=== PATIENT | female | born 2000 | race Caucasian/White ===

== ENCOUNTER 2019-08-26 10:40 | Emergency (ER) | payer OTHER ==
[~2019-08-26] VITALS: Ht 162.6 cm; Wt 68.0 kg
[2019-08-26] MEDS ORDERED: methylPREDNISolone SOD SUCC PF 125 MG/2 ML VIAL. IM ONE (11:30)
[2019-08-26] MEDS ORDERED: ASPIRIN 325 MG TABLET PO ONE (11:30)
[2019-08-26] MEDS ORDERED: hydrOXYzine IM 50 MG/ML VIAL IM ONE (11:30)
--- NOTE | 2019-08-26 11:39 | RAD ---
AP and Lateral Views of the Chest 08/26/2019 11:19 AM Indication: chest pain Comparison: None Findings: There is no focal consolidation or infiltrate identified. The cardiomediastinal silhouette is within normal limits. There is no evidence of pneumothorax or pleural effusion. No acute osseous abnormalities are identified. Impression: No evidence of acute cardiopulmonary process. Electronically signed by: Anthony Mckeon MD (08/26/2019 11:36 AM) [facility]
[2019-08-26] MEDS ORDERED: IV NORMAL SALINE 1000ML BAG 1,000 ML IV ONE (12:00)
[2019-08-26 13:06] LABS: BASO % 0 % (0-3); EOS # 0.1 x10^3/uL (0.0-0.7); EOS % 1 % (0-3); HEMATOCRIT 40.2 % (36.0-47.0); HEMOGLOBIN 13.6 g/dL (12.0-15.5); LYMPH # 1.8 x10^3/uL (1.0-4.8); LYMPH % 11 % (24-48); MEAN CORPUSCULAR HEMOGLOBIN 31 pg (25-35); MEAN CORPUSCULAR HGB CONC 34 g/dL (31-37); MEAN CORPUSCULAR VOLUME 91 fL (79-100); MONO # 0.6 x10^3/uL (0.0-1.1); MONO % 3 % (0-9); NEUT # 13.8 x10^3/uL (1.8-7.7); NEUT % 85 % (31-73); PLATELET COUNT 201 x10^3/uL (140-400); RED BLOOD COUNT 4.42 x10^6/uL (3.50-5.40); RED CELL DISTRIBUTION WIDTH 13.5 % (11.5-14.5); WHITE BLOOD COUNT 16.2 x10^3/uL (4.0-11.0)
--- NOTE | 2019-08-26 13:08 | EKG ---
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
[2019-08-26 13:15] LABS: CALCIUM 8.8 mg/dL (8.5-10.1); CREATININE 0.7 mg/dL (0.6-1.0); GFR 105.6; POTASSIUM 3.4 mmol/L (3.5-5.1)
[2019-08-26 13:21] LABS: ALBUMIN 3.4 g/dL (3.4-5.0); TOTAL BILIRUBIN 0.3 mg/dL (0.2-1.0); TOTAL PROTEIN 6.9 g/dL (6.4-8.2)
[2019-08-26] MEDS ORDERED: IOHEXOL 350 MG/ML 100 ML VIAL. IV ONE (13:45)
[2019-08-26 13:58] LABS: BILIRUBIN,URINE SMALL (NEG); CLARITY,URINE CLEAR; COLOR,URINE AMBER; NITRITE,URINE NEGATIVE (NEG); PH,URINE 5.5; PROTEIN,URINE NEGATIVE (NEG-TRACE)
[2019-08-26 14:00] LABS: BARBITURATES NEG (NEG); BENZODIAZEPINES NEG (NEG); CANNABINOIDS NEG (NEG); COCAINE NEG (NEG); METHADONE NEG (NEG); OPIATES NEG (NEG); PHENCYCLIDINE NEG (NEG)
[2019-08-26] MEDS ORDERED: CONTRAST GIVEN. MC PRN (14:00)
[2019-08-26 14:05] LABS: AMPHETAMINE/METHAMPHETAMINE NEG (NEG)
[2019-08-26 14:07] LABS: BACTERIA,URINE FEW /HPF (0-FEW); RBC,URINE 0 /HPF (0-2); SQUAMOUS EPITHELIAL CELL,UR MANY /LPF; WBC,URINE RARE /HPF (0-4)
--- NOTE | 2019-08-26 14:14 | RAD ---
Examination: CT ANGIOGRAPHY CHEST History: Chest pain Comparison/Correlation: None Findings: Axial images of the chest were obtained following IV contrast according to pulmonary arteriography protocol. Sagittal and coronal reformatted images were provided. Maximum intensity projection images were provided. The pulmonary arterial vasculature is normal. No enlarged thoracic lymph nodes. Aorta is unremarkable. No infiltrate or pleural effusion. No pneumothorax. Bony structures are unremarkable. Partially visualized abdomen is unremarkable although motion limits evaluation. Impression: Normal pulmonary arterial vasculature. No infiltrate. PQRS Compliance Statement: One or more of the following individualized dose reduction techniques were utilized for this examination: 1. Automated exposure control 2. Adjustment of the mA and/or kV according to patient size 3. Use of iterative reconstruction technique Electronically signed by: Med Harmon MD (08/26/2019 2:12 PM) [facility]
[2019-08-26 14:38] LABS: % ATYL 1 % (0-0); % BANDS 25 % (0-9); % LYMPHS 15 % (24-48); % MONOS 2 % (0-10); % SEGS 57 % (35-66); PLT ESTIMATE ADEQUATE (ADEQUATE)
[2019-08-26 15:03] VITALS: BP 109/65
--- NOTE | 2019-08-26 15:37 | PHYS DOC ---
Past Medical History Past Medical History: No Pertinent History (LORENZO TREVIÑO APRN) Past Surgical History: No Surgical History (LORENZO TREVIÑO APRN) Additional Information: vaping Alcohol Use: None (LORENZO TREVIÑO APRN) Adult General Chief Complaint Chief Complaint: CHEST PAIN HPI HPI Patient is a 19 year old female who presents with hives that began on Saturday after spending the night at a friend's house. Patient reports the friend uses tide laundry detergent which she has never used. Mother reports patient's sister has allergic reaction to tide. Patient reports she was seen by the PCP on Saturday, was started on Benadryl, Claritin, tapered dose of prednisone and Pepcid which she still taking. While talking with patient she also started complaining of substernal chest pain radiating to her back began in the ED with no exacerbating or relieving factors. Patient appears anxious, unable to rate the pain. Patient denies any chance she is . She reports she has an Implanon (LORENZO TREVIÑO APRN) Review of Systems Review of Systems Constitutional: Denies fever or chills [] Eyes: Denies change in visual acuity, redness, or eye pain [] HENT: Denies nasal congestion or sore throat [] Respiratory: Denies cough or shortness of breath [] Cardiovascular: Reports chest pain GI: Denies abdominal pain, nausea, vomiting, bloody stools or diarrhea [] : Denies dysuria or hematuria [] Musculoskeletal: Denies back pain or joint pain [] Integument: Reports rash Neurologic: Denies headache, focal weakness or sensory changes [] All other systems were reviewed and found to be within normal limits, except as documented in this note. (LORENZO TREVIÑO APRN) Current Medications Current Medications Current Medications Medications (Trade) Dose Ordered Sig/Dalton Start Time Stop Time Status Last Admin Dose Admin Aspirin (Miley Aspirin) 325 mg 1X ONCE 08/26/19 11:30 08/26/19 11:31 DC 08/26/19 11:43 325 MG Hydroxyzine HCl (Vistaril Im) 25 mg 1X ONCE 08/26/19 11:30 08/26/19 11:31 DC 08/26/19 11:40 25 MG Info (CONTRAST GIVEN -- Rx MONITORING) 1 each PRN DAILY PRN 08/26/19 14:00 08/26/19 15:50 DC Iohexol (Omnipaque 350 Mg/ml) 90 ml 1X ONCE 08/26/19 13:45 08/26/19 13:47 DC 08/26/19 14:01 90 ML Methylprednisolone Sodium Succinate (SOLU-Medrol 125MG VIAL) 125 mg 1X ONCE 08/26/19 11:30 08/26/19 11:31 DC 08/26/19 11:42 125 MG Sodium Chloride 1,000 ml @ 1,000 mls/hr 1X ONCE 08/26/19 12:00 08/26/19 12:59 DC 08/26/19 13:42 1,000 MLS/HR (LOU ROSENBERG DO) Allergies Allergies Allergies Coded Allergies Type Severity Reaction Last Updated Verified No Known Drug Allergies 08/26/19 No (LOU ROSENBERG DO) Physical Exam Physical Exam Constitutional: Well developed, well nourished, no acute distress, non-toxic appearance. [] HENT: Normocephalic, atraumatic, bilateral external ears normal, oropharynx moist, no oral exudates, nose normal. [] Eyes: PERRLA, EOMI, conjunctiva normal, no discharge. [] Neck: Normal range of motion, no tenderness, supple, no stridor. [] Cardiovascular:Heart rate regular rhythm, no murmur [] Lungs & Thorax: Bilateral breath sounds clear to auscultation [] Abdomen: Bowel sounds normal, soft, no tenderness, no masses, no pulsatile masses. [] Skin: Warm, dry, mild amount of hives on face, and bilateral upper extremities, small amount of medicine rash on the lower extremities and upper chest. Back: No tenderness, no CVA tenderness. [] Extremities: No tenderness, no cyanosis, no clubbing, ROM intact, no edema. [] Neurologic: Alert and oriented X 3, normal motor function, normal sensory function, no focal deficits noted. [] Psychologic: Flat affect, appears very anxious (MUTUNGA,LORENZO CAPACITOR TESTER) Current Patient Data Vital Signs Vital Signs Date Time Temp Pulse Resp B/P (MAP) Pulse Ox O2 Delivery O2 Flow Rate FiO2 08/26/19 15:03 84 109/65 (80) 100 Room Air 08/26/19 10:45 98.2 16 98.2 (LOU ROSENBERG DO) Lab Values Laboratory Tests Test 08/26/19 12:55 08/26/19 13:45 White Blood Count 16.2 x10^3/uL (4.0-11.0) H Red Blood Count 4.42 x10^6/uL (3.50-5.40) Hemoglobin 13.6 g/dL (12.0-15.5) Hematocrit 40.2 % (36.0-47.0) Mean Corpuscular Volume 91 fL (79-100) Mean Corpuscular Hemoglobin 31 pg (25-35) Mean Corpuscular Hemoglobin Concent 34 g/dL (31-37) Red Cell Distribution Width 13.5 % (11.5-14.5) Platelet Count 201 x10^3/uL (140-400) Neutrophils (%) (Auto) 85 % (31-73) H Lymphocytes (%) (Auto) 11 % (24-48) L Monocytes (%) (Auto) 3 % (0-9) Eosinophils (%) (Auto) 1 % (0-3) Basophils (%) (Auto) 0 % (0-3) Neutrophils # (Auto) 13.8 x10^3/uL (1.8-7.7) H Lymphocytes # (Auto) 1.8 x10^3/uL (1.0-4.8) Monocytes # (Auto) 0.6 x10^3/uL (0.0-1.1) Eosinophils # (Auto) 0.1 x10^3/uL (0.0-0.7) Basophils # (Auto) 0.0 x10^3/uL (0.0-0.2) Segmented Neutrophils % 57 % (35-66) Band Neutrophils % 25 % (0-9) H Lymphocytes % 15 % (24-48) L Atypical Lymphocytes % (Manual) 1 % (0-0) H Monocytes % 2 % (0-10) Platelet Estimate Adequate (ADEQUATE) D-Dimer (Antonella) 3.45 ug/mlFEU (0.00-0.50) H Sodium Level 141 mmol/L (136-145) Potassium Level 3.4 mmol/L (3.5-5.1) L Chloride Level 105 mmol/L (98-107) Carbon Dioxide Level 27 mmol/L (21-32) Anion Gap 9 (6-14) Blood Urea Nitrogen 18 mg/dL (7-20) Creatinine 0.7 mg/dL (0.6-1.0) Estimated GFR (Cockcroft-Gault) 105.6 BUN/Creatinine Ratio 26 (6-20) H Glucose Level 86 mg/dL (70-99) Calcium Level 8.8 mg/dL (8.5-10.1) Total Bilirubin 0.3 mg/dL (0.2-1.0) Aspartate Amino Transferase (AST) 18 U/L (15-37) Alanine Aminotransferase (ALT) 28 U/L (14-59) Alkaline Phosphatase 78 U/L (46-116) Troponin I Quantitative < 0.017 ng/mL (0.000-0.055) Total Protein 6.9 g/dL (6.4-8.2) Albumin 3.4 g/dL (3.4-5.0) Albumin/Globulin Ratio 1.0 (1.0-1.7) Urine Collection Type Unknown Urine Color Linda Urine Clarity Clear Urine pH 5.5 Urine Specific Bayard >=1.030 Urine Protein Negative mg/dL (NEG-TRACE) Urine Glucose (UA) Negative mg/dL (NEG) Urine Ketones (Stick) Trace mg/dL (NEG) Urine Blood Negative (NEG) Urine Nitrite Negative (NEG) Urine Bilirubin Small (NEG) Urine Urobilinogen Dipstick 1.0 mg/dL (0.2 mg/dL) Urine Leukocyte Esterase Negative (NEG) Urine RBC 0 /HPF (0-2) Urine WBC Rare /HPF (0-4) Urine Squamous Epithelial Cells Many /LPF Urine Bacteria Few /HPF (0-FEW) Urine Mucus Marked /LPF Urine Opiates Screen Neg (NEG) Urine Methadone Screen Neg (NEG) Urine Barbiturates Neg (NEG) Urine Phencyclidine Screen Neg (NEG) Urine Amphetamine/Methamphetamine Neg (NEG) Urine Benzodiazepines Screen Neg (NEG) Urine Cocaine Screen Neg (NEG) Urine Cannabinoids Screen Neg (NEG) Urine Ethyl Alcohol Neg (NEG) Laboratory Tests 08/26/19 12:55 Laboratory Tests 08/26/19 12:55 (LOU ROSENBERG DO) EKG EKG [address] Rosenberg sinus tachycardia HR 110 no STEMI[] (LORENZO TREVIÑO CAPACITOR TESTER) Radiology/Procedures Radiology/Procedures PROCEDURE: CHEST PA & LATERAL AP and Lateral Views of the Chest 08/26/2019 11:19 AM Indication: chest pain Comparison: None Findings: There is no focal consolidation or infiltrate identified. The cardiomediastinal silhouette is within normal limits. There is no evidence of pneumothorax or pleural effusion. No acute osseous abnormalities are identified. Impression: No evidence of acute cardiopulmonary process. Electronically signed by: Anthony Lemus MD (08/26/2019 11:36 AM) [facility] DICTATED and SIGNED BY: ANTHONY LEMUS MD DATE: 08/26/19 1136 []PROCEDURE: CT ANGIOGRAPHY CHEST Examination: CT ANGIOGRAPHY CHEST History: Chest pain Comparison/Correlation: None Findings: Axial images of the chest were obtained following IV contrast according to pulmonary arteriography protocol. Sagittal and coronal reformatted images were provided. Maximum intensity projection images were provided. The pulmonary arterial vasculature is normal. No enlarged thoracic lymph nodes. Aorta is unremarkable. No infiltrate or pleural effusion. No pneumothorax. Bony structures are unremarkable. Partially visualized abdomen is unremarkable although motion limits evaluation. Impression: Normal pulmonary arterial vasculature. No infiltrate. PQRS Compliance Statement: One or more of the following individualized dose reduction techniques were utilized for this examination: 1. Automated exposure control 2. Adjustment of the mA and/or kV according to patient size 3. Use of iterative reconstruction technique Electronically signed by: Med Aaron MD (08/26/2019 2:12 PM) [facility] DICTATED and SIGNED BY: MED AARON MD DATE: 08/26/19 1412 (LORENZO TREVIÑO APRN) Course & Med Decision Making Course & Med Decision Making Pertinent Labs and Imaging studies reviewed. (See chart for details) This is a 19-year-old female patient who presents to the ED today with a rash that began on Saturday after she spent the night at a friend's house where they use Tide laundry detergent which she has never used. Patient was seen by the PCP on Saturday, was started on Claritin, Benadryl, Pepcid and tapered dose of prednisone which she still on. She reports the rash is still present. While in the ED she started complaining about chest pain radiating to her back, she has an Implanon on increasing her risk of PE. EKG was ordered, labs are ordered, CT chest is negative. Labs were negative for any acute findings, white count was noted at 16.2 but she is on prednisone which can cause this. She was given Solu-Medrol in the ED, she had already taken Benadryl and Pepcid prior to coming to the ED. She was discharged to home and instructed to continue taking the tapered dose of prednisone, pepcid, Benadryl and Claritin and f/u with PCP next week (LORENZO TREVIÑO APRN) Dragon Disclaimer Dragon Disclaimer This electronic medical record was generated, in whole or in part, using a voice recognition dictation system. (LORENZO TREVIÑO APRN) Departure Departure Impression: Primary Impression: Allergic reaction Additional Impressions: Chest pain Smoking addiction Disposition: HOME, SELF-CARE Condition: STABLE Referrals: SARABJIT EVANGELISTA MD (PCP) follow up with your doctor in 1-2 weeks Patient Instructions: Chest Pain (Nonspecific), Contact Dermatitis Additional Instructions: Please continue taking the medicines you received from Dr. Evangelista for the rash. Please take Tylenol/ibuprofen for pain. Attending Signature Attending Signature I have reviewed the PA/SIGHT MOUNTER's note and plan of care. I was available for consultation as needed during the patient's visit in the emergency department. I agree with the clinical impression, plan, and disposition. (LOU ROSENBERG DO) Problem Qualifiers Primary Impression: Allergic reaction Encounter type: subsequent encounter Qualified Codes: T78.40XD - Allergy, unspecified, subsequent encounter Additional Impressions: Chest pain Chest pain type: unspecified Qualified Codes: R07.9 - Chest pain, unspecified LORENZO TREVIÑO APRN Aug 26, 2019 15:37 LOU ROSENBERG DO Aug 30, 2019 01:58
== END 2019-08-26 15:46 | disposition home or self-care (01) ==
LOC: ER 10:40
DX: T78.40XA Allergy, unspecified, initial encounter (principal); R07.2 Precordial pain; F17.200 Nicotine dependence, unspecified, uncomplicated; F41.9 Anxiety disorder, unspecified
CPT/HCPCS: 36415; 71046; 71275; 80053; 80307; 81001; 84484; 85007; 85025; 85379; 93005; 96372; 99285; J2930; J3410; J7030; Q9967